=== PATIENT | male | born 1975 | race Caucasian/White ===

== ENCOUNTER 2021-11-08 14:53 | Outpatient (CLI) | payer OTHER, SELFPAY | END 2021-11-08 14:54 | disposition home or self-care (01) | LOC: AMB 11-23 14:02 | PROVIDERS: Visit Provider Family Medicine | DX: S19.9XXA Unspecified injury of neck, initial encounter (principal); V63.5XXA Driver of heavy transport vehicle injured in collision with car, pick-up truck or van in traffic accident, initial encounter; Y92.413 State road as the place of occurrence of the external cause | CPT/HCPCS: A0425; A0427 ==

== ENCOUNTER 2021-11-08 15:50 | Emergency (ER) | payer SELFPAY ==
[2021-11-08] VITALS (16 sets, daily range): BP systolic 103–157; BP diastolic 69–112; PULSE 86–119; RESP 18–22; TEMP 37.6; O2SAT 94–97; BMI 31.0
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
[2021-11-08 16:11] LABS: Basophils Absolute Auto 0.03 K/uL (0.00-0.30); Basophils Percent Auto 0.3 % (0.0-3.0); Eosinophils Absolute Auto 0.15 K/uL (0.00-0.50); Eosinophils Percent Auto 1.7 % (0.0-7.0); Hematocrit 45.1 % (37.0-53.0); Hemoglobin* 15.4 gm/dL (13.5-17.5); Immature Granulocytes Abs Auto 0.01 K/uL (0.00-0.30); Lymphocytes Absolute Auto 2.09 K/uL (0.90-2.90); Lymphocytes Percent Auto 24.3 % (20-44); Mean Corpuscular HGB Conc 34 gm/dL (32-36); Mean Corpuscular Hemoglobin 30 pg (26-34); Mean Corpuscular Volume 87 fL (80-100); Monocytes Percent Auto 6.4 % (0.0-11.0); Neutrophils Absolute Auto 5.76 K/uL (1.7-7.0); Neutrophils Percent Auto 67.2 % (42.0-72.0); Platelet Count* 221 K/uL (140-440); Red Blood Count 5.16 m/uL (4.30-5.90); White Blood Count* 8.59 K/uL (4.50-11.00)
[2021-11-08 16:16] LABS: Slide Review Reflex No
[2021-11-08] MEDS: ONDANSETRON 2 MG/ML inj 4 MG IVP (16:17)
[2021-11-08 16:23] LABS: Chloride* 104 mmol/L (96-114); Sodium* 139 mmol/L (135-149)
[2021-11-08 16:24] LABS: Potassium* 3.6 mmol/L (3.6-5.1)
[2021-11-08 16:26] LABS: Blood Urea Nitrogen* 29 mg/dL (5-24); Carbon Dioxide* 21 mmol/L (20-32); Creatinine* 0.9 mg/dL (0.5-1.5); Est. Creatinine Clearance* 118.37; Estimated Glomerular Filt Rate 108 ml/min
[2021-11-08 16:27] LABS: Glucose* 110 mg/dL (60-115)
[2021-11-08 18:09] LABS: Ethanol* < 0.01 % (0.01-0.03)
== END 2021-11-08 19:02 | disposition home or self-care (01) ==
PROVIDERS: Emergency Provider Emergency Medicine Emergency Medical Services
DX: S10.93XA Contusion of unspecified part of neck, initial encounter (principal); M54.50 Low back pain, unspecified; S80.211A Abrasion, right knee, initial encounter; V53.5XXA Driver of pick-up truck or van injured in collision with car, pick-up truck or van in traffic accident, initial encounter; Y93.89 Activity, other specified; Y92.410 Unspecified street and highway as the place of occurrence of the external cause; Y99.0 Civilian activity done for income or pay
CPT/HCPCS: 36415; 70450; 72100; 72125; 76604; 76705; 80048; 80306; 82077; 85025; 93308; 96374; 99285; 99291; G0390; J2405